=== PATIENT | female | born 1985 | race Caucasian/White ===

== ENCOUNTER 2018-09-14 19:41 | Emergency (ER) | payer MEDICARE, MEDICAID ==
[~2018-09-14] VITALS: Ht 170.2 cm; Wt 136.4 kg
[~2018-09-14 19:41] MED LIST: CETIRIZINE; DILANT; DILANTIN; DILANTIN 100MG100 MG PO; ELITE MAGNESIUM1 TAB PO; LAMICTAL; LAMICTAL XR300 MG PO; MULTIPLE VITAMI1 CAP PO; PRILOSEC 20MG20 MG PO; PROVERA 10MG10 MG PO; PROVERA2.5 MG PO; SABRIL500 MG PO; TAURINE PO; TRILEPTAL; VIMPAT50 MG PO; [UNRECOGNIZED DRUG - OTHER]
[2018-09-14 19:52] VITALS: BP 126/72; TEMP 96.8
[2018-09-14] MEDS ORDERED: CEPHALEXIN500 M1 PO (21:02)
[2018-09-14 21:22] VITALS: PULSE 78
== END 2018-09-14 21:20 | disposition home or self-care (01) ==
LOC: COL.ER 19:41
DX: T81.30XA Disruption of wound, unspecified, initial encounter (principal); G40.909 Epilepsy, unspecified, not intractable, without status epilepticus

== ENCOUNTER 2019-12-29 11:11 | Emergency (ER) | payer MEDICARE, MEDICAID ==
[~2019-12-29] VITALS: Ht 170.2 cm; Wt 136.4 kg
[~2019-12-29 11:11] MED LIST changes: +CEPHALEXIN500 M1 PO
[2019-12-29 11:17] VITALS: TEMP 98.1
[2019-12-29 11:58] LABS: GRAN # 1.5 (1.4-6.5); GRAN % 60.4 % (42.2-75.2); HEMATOCRIT 37.8 % (37.0-47.0); HEMOGLOBIN 13.2 g/dl (12.5-16.0); LYMPH # 0.7 (1.2-3.4); MEAN CELL VOLUME 90 fl (80.0-100.0); MEAN CORPUSCULAR HEMOGLOBIN 31 pg (27.0-31.0); MEAN CORPUSCULAR HGB CONC 35 g/dl (33.0-37.0); MEAN PLATELET VOLUME 8.5 fl (7.4-10.4); MONO # 0.3 (0.1-0.6); MONO % 13.2 % (1.7-9.3); PLATELET COUNT 214 K/mm3 (130-400); RED BLOOD COUNT 4.21 M/mm3 (4.10-5.30); REDCELL DISTRIBUTION WIDTH-CV 12.1 % (11.5-14.5)
[2019-12-29 12:11] LABS: ALANINE AMINOTRANSFERASE 56 U/L (4-34); ALBUMIN 4.8 gm/dL (3.5-5.0); ALKALINE PHOSPHATASE 112 U/L (50-136); ANION GAP 11 mmol/L (7-16); AST,SGOT 44 U/L (15-37); BILIRUBIN,TOTAL 0.4 mg/dL (0.0-1.0); BLOOD UREA NITROGEN 6 mg/dL (7-17); CALCIUM 9.2 mg/dL (8.4-10.2); CARBON DIOXIDE 26 mmol/L (22-30); CHLORIDE 91 mmol/L (98-107); CREATININE, serum 0.47 (0.52-1.25); GLUCOSE 90 mg/dL (74-106); MAGNESIUM 1.8 mg/dL (1.6-2.3); POTASSIUM 4.2 mmol/L (3.4-5.0); SODIUM 127 mmol/L (137-145); TOTAL PROTEIN 7.8 gm/dL (6.4-8.2)
[2019-12-29 12:24] LABS: C-REACTIVE PROTEIN 0.7 mg/dL (0.0-0.9)
[2019-12-29 12:28] LABS: PROLACTIN 9.6 ng/mL (3.0-18.6)
[2019-12-29 12:47] LABS: THYROID STIMULATING HORMONE 0.964 uIU/mL (0.465-4.680)
[2019-12-29 12:58] LABS: PHENYTOIN (DILANTIN) < 3.0 ug/mL (10.0-20.0)
[2019-12-29 13:45] LABS: COLLECTION METHOD CLEAN CATCH
[2019-12-29 13:51] LABS: PH 7 (5-8); URINE APPEARANCE Cloudy; URINE BACTERIA None Seen /hpf; URINE BILIRUBIN Negative (NEGATIVE); URINE BLOOD 1+ (NEGATIVE); URINE GLUCOSE Negative (NEGATIVE); URINE KETONE Negative (NEGATIVE); URINE LEUKOCYTE ESTERASE Negative (NEGATIVE); URINE NITRATE Negative (NEGATIVE); URINE PROTEIN(semi-quant) Negative (NEGATIVE); URINE UROBILINOGEN Negative (NEGATIVE)
[2019-12-29 13:55] LABS: URINE COLOR Yellow
[2019-12-29 16:23] VITALS: BP 128/78; PULSE 80
== END 2019-12-29 16:25 | disposition home or self-care (01) ==
LOC: COL.ER 11:11
PROVIDERS: Emergency Medicine
DX: E87.1 Hypo-osmolality and hyponatremia (principal); G40.909 Epilepsy, unspecified, not intractable, without status epilepticus
CPT/HCPCS: J7030